=== PATIENT | female | born 1995 | race Caucasian/White ===

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

== ENCOUNTER 2017-03-16 03:43 | Emergency (ER) | payer MEDICAID ==
[~2017-03-16] VITALS: Ht 160 cm; Wt 81.6 kg
[~2017-03-16 03:43] MED LIST changes: +TRAMADOL HCL50 MG ORAL
[2017-03-16] MEDS ORDERED: Acetaminophen 500mg (ES) tab ORAL ONE (04:00)
[2017-03-16] MEDS ORDERED: IBUPROFEN600 MG ORAL (04:01)
[2017-03-16] MEDS ORDERED: TAMIFLU75 MG ORAL (04:02)
--- NOTE | 2017-03-16 04:02 | Emergency Room Report ---
History of Present Illness General Chief Complaint: Headache Source: Patient Present Illness HPI Is a 22-year-old female with no past history. She presents with chief complaint of fever and headache. Also with diffuse body pain. Onset last night. No nausea no vomiting. No cough or congestion. No dysuria frequency. No sick contact. Allergies: Coded Allergies: No Known Allergies (Unverified , 07/09/15) Patient History Past Medical History: none, see triage record, old chart reviewed Past Surgical History: none Pertinent Family History: none Social History: Denies: smoking Last Menstrual Period: Jan Now: No Immunizations: UTD, other Reviewed Nursing Documentation: PMH: Agreed, PSxH: Agreed Nursing Documentation-PMH Past Medical History: No Stated History Hx Cardiac Problems: No Hx Cancer: No Hx Gastrointestinal Problems: No Hx Neurological Problems: No Review of Systems Constitutional: Reports: fever Eye: Denies: eye pain, blurred vision ENT: Denies: ear pain, nose congestion, throat swelling Respiratory: Denies: cough, shortness of breath Cardiovascular: Denies: chest pain, palpitations Gastrointestinal: Denies: abdominal pain, diarrhea, nausea, vomiting Musculoskeletal: Denies: back pain, joint pain Skin: Denies: rash Neurological: Reports: headache Endocrine: Denies: increased thirst, increased urine Hematologic/Lymphatic: Denies: easy bruising All Other Systems: negative except mentioned in HPI Physical Exam Vital Signs Date Time Temp Pulse Resp B/P (MAP) Pulse Ox O2 Delivery O2 Flow Rate FiO2 03/16/17 03:47 98.6 157 18 120/55 97 Room Air vitals with tachycardia Sp02 EP Interpretation: reviewed, normal General Appearance: well appearing, no apparent distress, alert Head: normocephalic, atraumatic Eyes: bilateral eye PERRL, bilateral eye EOMI ENT: hearing grossly normal, normal pharynx Neck: full range of motion, supple, no meningismus Respiratory: chest non-tender, lungs clear, normal breath sounds Cardiovascular #1: regular rate, rhythm, no murmur Gastrointestinal: normal bowel sounds, non tender, no mass, no organomegaly, no bruit, non-distended Musculoskeletal: back normal, gait/station normal, normal range of motion Neurologic: alert, oriented x3 Psychiatric: mood/affect normal Skin: warm/dry Medical Decision Making Diagnostic Impression: Primary Impression: Influenza ER Course Patient with symptom of influenza. She is very warm to the touch. No evidence of meningitis, sepsis pneumonia or UTI. Last Vital Signs Date Time Temp Pulse Resp B/P (MAP) Pulse Ox O2 Delivery O2 Flow Rate FiO2 03/16/17 03:47 98.6 157 18 120/55 97 Room Air Status: improved Disposition: HOME, SELF-CARE Condition: Stable Scripts Oseltamivir Phosphate (Tamiflu) 75 Mg Capsule 75 MG ORAL TWICE A DAY, #10 CAP Prov: KENNA COTTON M.D. 03/16/17 Ibuprofen* (MOTRIN*) 600 Mg Tablet 600 MG ORAL THREE TIMES A DAY, #30 TAB 0 Refills Prov: KENNA COTTON M.D. 03/16/17 Additional Instructions: Followup with your Dr. in 3-5 days. Increase fluid. Return if symptom worsen. KENNA COTTON M.D. Mar 16, 2017 04:02
[2017-03-16 04:10] VITALS: BP 120/55
[2017-03-16 04:37] VITALS: BP 120/55
== END 2017-03-16 04:45 | disposition home or self-care (01) ==
LOC: EMR 04:45
DX: J11.1 Influenza due to unidentified influenza virus with other respiratory manifestations (principal)
CPT/HCPCS: 99283

== ENCOUNTER 2017-07-28 13:59 | Emergency (ER) | payer MEDICAID ==
[~2017-07-28] VITALS: Ht 160 cm; Wt 84.4 kg
[~2017-07-28 13:59] MED LIST changes: +TAMIFLU75 MG ORAL
[2017-07-28 15:39] LABS: APPEARANCE,URINE CLEAR; BILIRUBIN, URINE NEGATIVE (NEGATIVE); GLUCOSE, URINE (UA) NEGATIVE (NEGATIVE); KETONES,URINE NEGATIVE (NEGATIVE); LEUKOCYTE ESTERASE ,URINE 1+ (NEGATIVE); NITRITE,URINE POSITIVE (NEGATIVE); PH,URINE 6 (4.5-8.0); PROTEIN,URINE NEGATIVE (NEGATIVE); UROBILINOGEN,URINE NORMAL MG/DL (0.0-1.0)
[2017-07-28 15:39] LABS: BASOPHILS % (AUTO) 0.6 % (0.0-2.0); EOSINOPHILS % (AUTO) 0.7 % (0.0-3.0); HEMATOCRIT 39.5 % (37.0-47.0); HEMOGLOBIN 13.3 G/DL (12.0-16.0); LYMPHOCYTES % (AUTO) 24.8 % (20.0-45.0); MEAN CORPUSCULAR VOLUME 86 FL (80-99); MONOCYTES % (AUTO) 8.3 % (1.0-10.0); NEUTROPHILS % (AUTO) 65.6 % (45.0-75.0); PLATELET COUNT 229 K/UL (150-450); RED BLOOD COUNT 4.59 M/UL (4.20-5.40); RED CELL DISTRIBUTION WIDTH 12.8 % (11.6-14.8); WHITE BLOOD COUNT 9.4 K/UL (4.8-10.8)
--- NOTE | 2017-07-28 15:40 | Emergency Room Report ---
History of Present Illness General Chief Complaint: Complications Source: Patient Present Illness HPI 22-year-old female presents ED for evaluation. States that she's approximate 6 weeks by LMP. States for the last few days she's been having lower cramping and spotting. 4 out of 10. Nonradiating. Denies vaginal discharge. Denies fevers or chills. Denies nausea or vomiting. No other aggravating or relieving factors. Denies any other associated symptoms Allergies: Coded Allergies: No Known Allergies (Unverified , 07/09/15) Patient History Past Medical History: none Past Surgical History: none Pertinent Family History: none Social History: Denies: smoking, alcohol use, drug use Last Menstrual Period: july 16 Now: Yes : 3 Para: 0 Immunizations: UTD Reviewed Nursing Documentation: PMH: Agreed; PSxH: Agreed Nursing Documentation-PMH Past Medical History: No Stated History Hx Cardiac Problems: No Hx Cancer: No Hx Gastrointestinal Problems: No Hx Neurological Problems: No Review of Systems All Other Systems: negative except mentioned in HPI Physical Exam Vital Signs Date Time Temp Pulse Resp B/P (MAP) Pulse Ox O2 Delivery O2 Flow Rate FiO2 07/28/17 14:07 98.2 74 18 106/59 98 Room Air 98.2 Sp02 EP Interpretation: reviewed, normal General Appearance: no apparent distress, alert, GCS 15, non-toxic Head: normocephalic, atraumatic Eyes: bilateral eye normal inspection, bilateral eye PERRL ENT: hearing grossly normal, normal pharynx, no angioedema, normal voice Neck: full range of motion, supple/symm/no masses Respiratory: chest non-tender, lungs clear, normal breath sounds, speaking full sentences Cardiovascular #1: regular rate, rhythm, no edema Cardiovascular #2: 2+ carotid (R), 2+ carotid (L), 2+ radial (R), 2+ radial (L) , 2+ dorsalis pedis (R), 2+ dorsalis pedis (L) Gastrointestinal: normal bowel sounds, non tender, soft, non-distended, no guarding, no rebound Rectal: deferred Genitourinary: normal inspection, no CVA tenderness Musculoskeletal: back normal, gait/station normal, normal range of motion, non- tender Neurologic: alert, oriented x3, responsive, motor strength/tone normal, sensory intact, speech normal Psychiatric: judgement/insight normal, memory normal, mood/affect normal, no suicidal/homicidal ideation Reflexes: 3+ bicep (R), 3+ bicep (L), 3+ tricep (R), 3+ tricep (L), 3+ knee (R) , 3+ knee (L) Skin: normal color, no rash, warm/dry, well hydrated Lymphatic: no adenopathy Medical Decision Making Diagnostic Impression: Primary Impression: Threatened Additional Impression: UTI (urinary tract infection) Qualified Codes: N39.0 - Urinary tract infection, site not specified ER Course Hospital Course 22-year-old female presents to ED complaining of lower abdominal pain with spotting + Differential diagnoses include: gastrits, gastroenterits, ectopic , ovarian torsion/cyst, UTI Clinical course Patient placed on stretcher in ED. After initial history and physical I ordered labs and US Labs-no leukocytosis, electrolytes okay, BHCG +, UA + bacteria OB ultrasound-IUP detected with heart rate Discussed findings with patient. heart rate on the low side. Patient had 2 prior miscarriages. I explained to patient that she needs to follow-up with [employer]/GYN specialist. Diagnosis - threateend , UTI Stable and discharged to home with Rx macrobid. Followup with PMD/SERVER. Return to ED if symptoms recur or worsen Labs Test 07/28/17 14:11 07/28/17 15:00 Urine Color Yellow Urine Appearance Clear Urine pH 6 (4.5-8.0) Urine Specific [place] 1.020 (1.005-1.035) Urine Protein Negative (NEGATIVE) Urine Glucose (UA) Negative (NEGATIVE) Urine Ketones Negative (NEGATIVE) Urine Occult Blood 2+ (NEGATIVE) Urine Nitrite Positive (NEGATIVE) Urine Bilirubin Negative (NEGATIVE) Urine Urobilinogen Normal MG/DL (0.0-1.0) Urine Leukocyte Esterase 1+ (NEGATIVE) Urine RBC 2-4 /HPF (0 - 2) Urine WBC 0-2 /HPF (0 - 2) Urine Squamous Epithelial Cells Few /LPF (NONE/OCC) Urine Amorphous Sediment Few /LPF (NONE) Urine Bacteria Few /HPF (NONE) Urine HCG, Qualitative Positive (NEGATIVE) White Blood Count 9.4 K/UL (4.8-10.8) Red Blood Count 4.59 M/UL (4.20-5.40) Hemoglobin 13.3 G/DL (12.0-16.0) Hematocrit 39.5 % (37.0-47.0) Mean Corpuscular Volume 86 FL (80-99) Mean Corpuscular Hemoglobin 29.0 PG (27.0-31.0) Mean Corpuscular Hemoglobin Concent 33.7 G/DL (32.0-36.0) Red Cell Distribution Width 12.8 % (11.6-14.8) Platelet Count 229 K/UL (150-450) Mean Platelet Volume 10.2 FL (6.5-10.1) Neutrophils (%) (Auto) 65.6 % (45.0-75.0) Lymphocytes (%) (Auto) 24.8 % (20.0-45.0) Monocytes (%) (Auto) 8.3 % (1.0-10.0) Eosinophils (%) (Auto) 0.7 % (0.0-3.0) Basophils (%) (Auto) 0.6 % (0.0-2.0) Sodium Level 136 MMOL/L (136-145) Potassium Level 3.8 MMOL/L (3.5-5.1) Chloride Level 103 MMOL/L (98-107) Carbon Dioxide Level 24 MMOL/L (21-32) Anion Gap 9 mmol/L (5-15) Blood Urea Nitrogen 12 mg/dL (7-18) Creatinine 0.5 MG/DL (0.55-1.30) Estimat Glomerular Filtration Rate > 60 mL/min (>60) Glucose Level 91 MG/DL (74-106) Calcium Level 9.2 MG/DL (8.5-10.1) Total Bilirubin 0.4 MG/DL (0.2-1.0) Aspartate Amino Transf (AST/SGOT) 19 U/L (15-37) Alanine Aminotransferase (ALT/SGPT) 40 U/L (12-78) Alkaline Phosphatase 69 U/L (46-116) Total Protein 7.4 G/DL (6.4-8.2) Albumin 3.7 G/DL (3.4-5.0) Globulin 3.7 g/dL Albumin/Globulin Ratio 1.0 (1.0-2.7) Human Chorionic Gonadotropin, Quant 24256 mIU/mL (1-6) CT/MRI/US Diagnostic Results CT/MRI/US Diagnostic Results : Imaging Test Ordered: OB US Impression IUP approximately 6 weeks. +FHR noted Last Vital Signs Date Time Temp Pulse Resp B/P (MAP) Pulse Ox O2 Delivery O2 Flow Rate FiO2 07/28/17 14:07 98.2 74 18 106/59 98 Room Air 98.2 Status: improved Disposition: HOME, SELF-CARE Condition: Stable Scripts Nitrofurantoin Monohyd/M-Cryst* (MACROBID 100 MG*) 100 Mg Capsule 100 MG ORAL EVERY 12 HOURS for 7 Days, CAP Prov: Dawson Camacho MD 07/28/17 Referrals: NON PHYSICIAN (PCP) Dawson Camacho MD July 28, 2017 15:40
[2017-07-28 15:41] LABS: COLOR,URINE YELLOW
[2017-07-28 15:54] LABS: ANION GAP 9 mmol/L (5-15); BLOOD UREA NITROGEN 12 mg/dL (7-18); CALCIUM 9.2 MG/DL (8.5-10.1); CARBON DIOXIDE 24 MMOL/L (21-32); CHLORIDE 103 MMOL/L (98-107); CREATININE 0.5 MG/DL (0.55-1.30); POTASSIUM 3.8 MMOL/L (3.5-5.1); SODIUM 136 MMOL/L (136-145)
[2017-07-28 16:06] LABS: ALBUMIN 3.7 G/DL (3.4-5.0); ALKALINE PHOSPHATASE 69 U/L (46-116); ASPARTATE AMINO TRANSFERASE 19 U/L (15-37); BILIRUBIN,TOTAL 0.4 MG/DL (0.2-1.0)
[2017-07-28 16:17] LABS: ALANINE AMINOTRANSFERASE 40 U/L (12-78)
[2017-07-28 16:19] VITALS: BP 104/57
[2017-07-28] MEDS ORDERED: NITROFURANTOIN100 M2 ORAL (16:38)
[2017-07-28 16:42] VITALS: BP 104/57
--- NOTE | 2017-07-28 16:55 | Diagnostic Imaging Report ---
Indication: Vaginal bleeding Technique: Grayscale and duplex Doppler imaging of the pelvis performed utilizing a transabdominal scan and endovaginal scan. Comparison: None Findings: Single living intrauterine demonstrated with a yolk sac and pole. Gestational age based on crown-rump length is 6 weeks +/- 4 days. heart tones demonstrated. There is a 1.5 cm cyst in the right ovary. Both ovaries demonstrate dopplerable blood flow. IMPRESSION: Single living IUP 6 weeks gestational age. 1.5 cm right corpus luteum cyst
== END 2017-07-28 16:42 | disposition home or self-care (01) ==
LOC: EMR 14:41
DX: O20.0 Threatened abortion (principal); Z3A.01 Less than 8 weeks gestation of pregnancy; O23.41 Unspecified infection of urinary tract in pregnancy, first trimester; O34.81 Maternal care for other abnormalities of pelvic organs, first trimester; N83.11 Corpus luteum cyst of right ovary
CPT/HCPCS: 36415; 76801; 76830; 80053; 81003; 81025; 84702; 85025; 99284

== ENCOUNTER 2017-08-17 20:18 | Emergency (ER) | payer MEDICAID ==
[~2017-08-17] VITALS: Ht 160 cm; Wt 84.4 kg
[2017-08-17] MEDS ORDERED: VITAFOL-OB+DHA1 EACH PO (20:29)
[2017-08-17 20:45] VITALS: BP 118/66
[2017-08-17] MEDS ORDERED: EPINEPHrine 1mg/1ml Amp IM ONE (20:45)
--- NOTE | 2017-08-17 20:50 | Emergency Room Report ---
History of Present Illness General Chief Complaint: Skin Rash/Abscess Source: Patient Present Illness HPI The patient presents with 3 days of a skin rash with itching. It started on her back. Started after she had eaten shrimp. She's never reacted to shrimp before. It's persisted and spread throughout her body with itching of her hands. She denies any fevers, chills, swelling of throat or shortness of breath. She is unable to sleep because of the itching. She tried Benadryl cream but hasn't helped. The patient is 9 weeks and her last period was June 15. She's had intermittent bleeding. She bled 2 days ago for a short period of time without any clots and only used one pad. The bleeding has stopped. 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 She denies any lower abdominal pain or dysuria. She is eating well without vomiting or diarrhea. She denies new soaps clothes perfumes. Intermittent episodes of back pain in past, stable now. Allergies: Coded Allergies: No Known Allergies (Unverified , 07/09/15) Patient History Past Medical History: see triage record Social History: Denies: smoking, alcohol use Social History Narrative with significant other Last Menstrual Period: 06/15/18 Now: Yes - 9 weeks : 3 Para: 0 Reviewed Nursing Documentation: PMH: Agreed; PSxH: Agreed Nursing Documentation-PM Past Medical History: No Stated History Hx Cardiac Problems: No Hx Cancer: No Hx Gastrointestinal Problems: No Hx Neurological Problems: No Review of Systems All Other Systems: negative except mentioned in HPI Physical Exam Vital Signs Date Time Temp Pulse Resp B/P (MAP) Pulse Ox O2 Delivery O2 Flow Rate FiO2 08/17/17 20:23 97.9 73 16 118/66 96 Room Air 97.9 Sp02 EP Interpretation: reviewed, normal General Appearance: well appearing, no apparent distress, GCS 15, other - Scratching her palms Head: normocephalic Eyes: bilateral eye normal inspection, bilateral eye PERRL ENT: moist mucus membranes Neck: supple Respiratory: lungs clear, normal breath sounds Cardiovascular #1: regular rate, rhythm Cardiovascular #2: 2+ radial (R) Gastrointestinal: normal inspection, normal bowel sounds, non tender, no mass, non-distended Genitourinary: no CVA tenderness Musculoskeletal: back normal, gait/station normal, normal range of motion Neurologic: alert, oriented x3, grossly normal Psychiatric: mood/affect normal Skin: warm/dry, other - [id number] reacti torso and extremities. Medical Decision Making Diagnostic Impression: Primary Impression: Hives Additional Impressions: 9 weeks gestation of History of vaginal bleeding History of incompetent cervix, currently UTI (urinary tract infection) Qualified Codes: N30.00 - Acute cystitis without hematuria ER Course Patient presents with skin itching and [id number] reaction. The [place] includes allergic reaction, hives, viral syndrome amongst others. There is no evidence of anaphylaxis or serious upper airway compromise at this time. The patient is unable to sleep however in epinephrine, prednisone and Benadryl are indicated. She's also 9 weeks' . She had a small amount of vaginal bleeding a few days ago. This is resolved. Urinalysis will be checked. She is been followed by an [employer] and had an ultrasound done. Improved slightly after epi. Still c/o itching. Refuses more epi. Discussed onset of prednisone. Blood bank review confirms O+ blood. UA with pyuria. Macrobid started. Patient stable for outpatient observation and treatment. Laboratory Tests Test 08/17/17 20:43 Urine Color [place] Urine Appearance Slightly cloudy Urine pH 6.5 (4.5-8.0) Urine Specific [place] 1.020 (1.005-1.035) Urine Protein 1+ (NEGATIVE) H Urine Glucose (UA) Negative (NEGATIVE) Urine Ketones Negative (NEGATIVE) Urine Occult Blood 1+ (NEGATIVE) H Urine Nitrite Negative (NEGATIVE) Urine Bilirubin Negative (NEGATIVE) Urine Ictotest Negative Urine Urobilinogen Normal MG/DL (0.0-1.0) Urine Leukocyte Esterase 1+ (NEGATIVE) H Urine RBC 0-2 /HPF (0 - 2) Urine WBC 5-10 /HPF (0 - 2) H Urine Squamous Epithelial Cells Moderate /LPF (NONE/OCC) H Urine Amorphous Sediment Few /LPF (NONE) H Urine Bacteria Moderate /HPF (NONE) H Rhythm Strip Diag. Results EP Interpretation: yes Rhythm: NSR, no PVC's, no ectopy Last Vital Signs Date Time Temp Pulse Resp B/P (MAP) Pulse Ox O2 Delivery O2 Flow Rate FiO2 08/17/17 22:00 98.0 85 16 122/97 97 Room Air 98.0 Status: improved Disposition: HOME, SELF-CARE Condition: Improved Scripts Nitrofurantoin Monohyd/M-Cryst* (MACROBID 100 MG*) 100 Mg Capsule 100 MG ORAL EVERY 12 HOURS, #14 CAP Prov: Israel Dukes M.D. 08/17/17 Diphenhydramine Hcl* (BENADRYL*) 25 Mg Capsule 25 MG ORAL Q6H PRN for Itching, #20 CAP Prov: Israel Dukes M.D. 08/17/17 Prednisone* (PREDNISONE*) 10 Mg Tablet 10 MG ORAL DAILY, #11 TAB 0 Refills 4 po QD X 1, 3 po QD X 1, 2 po QD X 1, 1 po QD X 2 Prov: Israel Dukes M.D. 08/17/17 Referrals: [facility],REFERRING (PCP) Israel Dukes M.D. August 17, 2017 20:50
[2017-08-17 21:20] LABS: APPEARANCE,URINE SLIGHTLY CLOUDY; BILIRUBIN, URINE NEGATIVE (NEGATIVE); COLOR,URINE AMBER; GLUCOSE, URINE (UA) NEGATIVE (NEGATIVE); KETONES,URINE NEGATIVE (NEGATIVE); LEUKOCYTE ESTERASE ,URINE 1+ (NEGATIVE); NITRITE,URINE NEGATIVE (NEGATIVE); PH,URINE 6.5 (4.5-8.0); PROTEIN,URINE 1+ (NEGATIVE); UROBILINOGEN,URINE NORMAL MG/DL (0.0-1.0)
[2017-08-17 21:45] VITALS: BP 122/97
[2017-08-17] MEDS ORDERED: PREDNISONE10 MG ORAL (21:54)
[2017-08-17] MEDS ORDERED: BENADRYL25 MG ORAL (21:54)
[2017-08-17] MEDS ORDERED: NITROFURANTOIN100 M2 ORAL (21:54)
[2017-08-17 22:00] VITALS: BP 122/97
== END 2017-08-17 22:00 | disposition home or self-care (01) ==
LOC: EMR 20:40
DX: O26.891 Other specified pregnancy related conditions, first trimester (principal); Z3A.09 9 weeks gestation of pregnancy; R21 Rash and other nonspecific skin eruption; O23.41 Unspecified infection of urinary tract in pregnancy, first trimester
CPT/HCPCS: 81003; 87086; 96372; 99284; J0171; J7512

== ENCOUNTER 2019-02-25 10:56 | Inpatient (IN) | payer MEDICAID ==
[~2019-02-25] VITALS: Ht 160 cm; Wt 93.4 kg
[~2019-02-25 10:56] MED LIST changes: +BENADRYL25 MG ORAL; +PREDNISONE10 MG ORAL; +VITAFOL-OB+DHA1 EACH PO
[2019-02-25 11:57] LABS: HEMATOCRIT 39.7 % (37.0-47.0); MEAN CORPUSCULAR VOLUME 86 FL (80-99); PLATELET COUNT 216 K/UL (150-450); RED CELL DISTRIBUTION WIDTH 11.8 % (11.6-14.8); WHITE BLOOD COUNT 12.8 K/UL (4.8-10.8)
[2019-02-25 12:11] LABS: APPEARANCE,URINE CLEAR; BILIRUBIN, URINE NEGATIVE (NEGATIVE); GLUCOSE, URINE (UA) NEGATIVE (NEGATIVE); KETONES,URINE 4+ (NEGATIVE); LEUKOCYTE ESTERASE ,URINE 1+ (NEGATIVE); NITRITE,URINE NEGATIVE (NEGATIVE); PH,URINE 6.5 (4.5-8.0); PROTEIN,URINE 2+ (NEGATIVE); UROBILINOGEN,URINE NORMAL MG/DL (0.0-1.0)
[2019-02-25 12:14] LABS: ANION GAP 10 mmol/L (5-15); BLOOD UREA NITROGEN 10 mg/dL (7-18); CALCIUM 8.6 MG/DL (8.5-10.1); CARBON DIOXIDE 25 MMOL/L (21-32); CHLORIDE 103 MMOL/L (98-107); CREATININE 0.7 MG/DL (0.55-1.30); POTASSIUM 3.7 MMOL/L (3.5-5.1); SODIUM 138 MMOL/L (136-145)
[2019-02-25 12:15] LABS: INR 0.9 (0.9-1.1)
[2019-02-25 12:18] LABS: COLOR,URINE YELLOW
[2019-02-25 12:19] LABS: ALANINE AMINOTRANSFERASE 70 U/L (12-78); ALBUMIN 3.2 G/DL (3.4-5.0); ALBUMIN/GLOBULIN RATIO 0.8 (1.0-2.7); ALKALINE PHOSPHATASE 73 U/L (46-116); ASPARTATE AMINO TRANSFERASE 46 U/L (15-37); BILIRUBIN,TOTAL 0.2 MG/DL (0.2-1.0)
--- NOTE | 2019-02-25 13:50 | Emergency Room Report ---
History of Present Illness General Chief Complaint: Syncope Source: Patient Present Illness HPI Syncope at home. Hit forehead. Has had RLQ and R flank pain 10/31. Bladder pain being treated for UTI. Some chills, no documented fever. Vomiting, no blood. Able to keep down some fluids. No medicines taken for the pain. Pain radiates to R flank. No vaginal bleeding or discharge. Tx for UTI and feels like pain in flank and abdomen is related. Still feels dizzy. Denies headache aside from where she hit her forehead. Sates 14 weeks . Not know blood type. No sore throat, chest pain, palpitations, diarrhea, cough, shortness of breath, joint pain, rashes, depression, anxiety, headache. Allergies: Coded Allergies: No Known Allergies (Unverified , 07/09/15) Patient History Past Medical History: see triage record Social History: Denies: smoking, alcohol use Social History Narrative One child at home 3 y.o. Now: Yes - 14 weeks : 4 Reviewed Nursing Documentation: PMH: Agreed; PSxH: Agreed Nursing Documentation-[facility] Past Medical History: No Stated History Hx Cardiac Problems: No Hx Cancer: No Hx Gastrointestinal Problems: No Hx Neurological Problems: No Review of Systems All Other Systems: negative except mentioned in HPI Physical Exam Vital Signs Date Time Temp Pulse Resp B/P (MAP) Pulse Ox O2 Delivery O2 Flow Rate FiO2 02/25/19 11:06 98.1 85 19 116/71 (86) 98 Room Air Sp02 EP Interpretation: reviewed, normal General Appearance: no apparent distress, GCS 15, non-toxic, other - pale Head: normocephalic, other - see skin Eyes: bilateral eye normal inspection, bilateral eye PERRL, bilateral eye EOMI ENT: moist mucus membranes Neck: full range of motion, supple, no bony tend Respiratory: chest non-tender, lungs clear, normal breath sounds Cardiovascular #1: regular rate, rhythm Cardiovascular #2: 2+ radial (R) Gastrointestinal: normal inspection, normal bowel sounds, no mass, non- distended, no rebound, guarding - RLQ, tenderness - suprapubid and RLQ - R flank Genitourinary: CVA tenderness (R), deferred - for ultrasound Musculoskeletal: back normal, normal range of motion, gait/station normal - with weakness and pallor when standing Neurologic: alert, oriented x3, grossly normal Psychiatric: anxious - as feels dizzy Skin: abrasion - hematoma (small) R frontal/forehead, pallor Medical Decision Making Diagnostic Impression: Primary Impression: Syncope Qualified Codes: R55 - Syncope and collapse Additional Impressions: 13 weeks gestation of Pelvic pain Persistent vomiting Partially treated pyelonephritis Leukocytosis Qualified Codes: D72.828 - Other elevated white blood cell count Head injury Qualified Codes: S09.90XA - Unspecified injury of head, initial encounter ER Course Patient presents with syncope and head trauma stating 14 months with abdominal pain being treated for UTI. Differential vasovagal, ectopic, UTI, ovarian cyst, appendicitis, volume depletion, hyperemesis, viral syndrome amongst others. Evaluation with EKG, abdominal ultrasound and labs. Treatment with IV hydration and cardiac observation. Non-focal neuro and no WOOD, CT not indicated of head. Pallor improved when supine. EKG without injury. Ultrasound IUP. Labs with elevated WBC. Quant appropriate. O+ blood. Urine with ketones and blood, few WBC. Patient continues to vomit and have 7/10 pain in her abdomen. Her abdomen is nonsurgical at this time. She will be treated with Reglan, Benadryl and morphine.13:49. Patient will be admitted for observation due to syncope, abdominal pain and persistent vomiting with possible partially treated pyelonephritis Dr. Morales. (Consider serial exams and CBC with consideration of appendicitis - less likely due to physical exam.) Rocephin given IV. Discussed with Dr. Edwards. Patient eating in ED. Laboratory Tests Test 02/25/19 11:29 White Blood Count 12.8 K/UL (4.8-10.8) H Red Blood Count 4.60 M/UL (4.20-5.40) Hemoglobin 13.0 G/DL (12.0-16.0) Hematocrit 39.7 % (37.0-47.0) Mean Corpuscular Volume 86 FL (80-99) Mean Corpuscular Hemoglobin 28.3 PG (27.0-31.0) Mean Corpuscular Hemoglobin Concent 32.8 G/DL (32.0-36.0) Red Cell Distribution Width 11.8 % (11.6-14.8) Platelet Count 216 K/UL (150-450) Mean Platelet Volume 10.9 FL (6.5-10.1) H Neutrophils (%) (Auto) % (45.0-75.0) Lymphocytes (%) (Auto) % (20.0-45.0) Monocytes (%) (Auto) % (1.0-10.0) Eosinophils (%) (Auto) % (0.0-3.0) Basophils (%) (Auto) % (0.0-2.0) Differential Total Cells Counted 100 Neutrophils % (Manual) 81 % (45-75) H Lymphocytes % (Manual) 11 % (20-45) L Monocytes % (Manual) 7 % (1-10) Eosinophils % (Manual) 1 % (0-3) Basophils % (Manual) 0 % (0-2) Band Neutrophils 0 % (0-8) Platelet Estimate Adequate Platelet Morphology Normal Red Blood Cell Morphology Normal Prothrombin Time 9.9 SEC (9.30-11.50) Prothrombin Time INR 0.9 (0.9-1.1) PTT 26 SEC (23-33) Urine Color Yellow Urine Appearance Clear Urine pH 6.5 (4.5-8.0) Urine Specific [place] 1.020 (1.005-1.035) Urine Protein 2+ (NEGATIVE) H Urine Glucose (UA) Negative (NEGATIVE) Urine Ketones 4+ (NEGATIVE) H Urine Blood 5+ (NEGATIVE) H Urine Nitrite Negative (NEGATIVE) Urine Bilirubin Negative (NEGATIVE) Urine Urobilinogen Normal MG/DL (0.0-1.0) Urine Leukocyte Esterase 1+ (NEGATIVE) H Urine RBC Tntc /HPF (0 - 2) H Urine WBC 2-4 /HPF (0 - 2) Urine Squamous Epithelial Cells Many /LPF (NONE/OCC) H Urine Bacteria Few /HPF (NONE) Sodium Level 138 MMOL/L (136-145) Potassium Level 3.7 MMOL/L (3.5-5.1) Chloride Level 103 MMOL/L (98-107) Carbon Dioxide Level 25 MMOL/L (21-32) Anion Gap 10 mmol/L (5-15) Blood Urea Nitrogen 10 mg/dL (7-18) Creatinine 0.7 MG/DL (0.55-1.30) Estimate Glomerular Filtration Rate > 60 mL/min (>60) Glucose Level 136 MG/DL (74-106) H Calcium Level 8.6 MG/DL (8.5-10.1) Total Bilirubin 0.2 MG/DL (0.2-1.0) Aspartate Amino Transferase (AST) 46 U/L (15-37) H Alanine Aminotransferase (ALT) 70 U/L (12-78) Alkaline Phosphatase 73 U/L (46-116) Total Protein 7.4 G/DL (6.4-8.2) Albumin 3.2 G/DL (3.4-5.0) L Globulin 4.2 g/dL Albumin/Globulin Ratio 0.8 (1.0-2.7) L Lipase 73 U/L (73-393) Human Chorionic Gonadotropin, Quant 03499 mIU/mL (1-6) H EKG Diagnostic Results Rate: normal Rhythm: NSR ST Segments: no acute changes Rhythm Strip Diag. Results EP Interpretation: yes Rhythm: NSR, no PVC's, no ectopy CT/MRI/US Diagnostic Results CT/MRI/US Diagnostic Results : Imaging Test Ordered: pelvic u/s Impression Impression: Are 13 week 4 day, by average of ultrasound measurements, single live intrauterine . No unusual features Last Vital Signs Date Time Temp Pulse Resp B/P (MAP) Pulse Ox O2 Delivery O2 Flow Rate FiO2 02/25/19 20:00 101 02/25/19 20:00 98.8 116/60 (78) 02/25/19 17:38 20 98 Room Air Status: improved Disposition: PLACE IN OBSERVATION Condition: Serious Referrals: NON PHYSICIAN (PCP) Israel Dukes MD Feb 25, 2019 13:50
[2019-02-25 13:59] VITALS: BP 130/69
[2019-02-25] MEDS ORDERED: DiphenhydrAMINE 50mg/ml Inj IVP ONE (14:00)
[2019-02-25] MEDS ORDERED: Metoclopramide 10mg/2ml Inj IVP ONE (14:00)
[2019-02-25] MEDS ORDERED: Morphine Sulfate 2mg/ml Inj(IV/IM USE ONLY) IVP ONE (14:00)
--- NOTE | 2019-02-25 14:07 | Diagnostic Imaging Report ---
Indication: Abdominal pain, pelvic pain, nausea, vomiting, positive test Technique: Transabdominal images of the uterus and fetus Comparison: 07/28/2017 Findings: There is a single live intrauterine . This demonstrates breech presentation. It demonstrates positive heart activity, heart rate 136 bpm. There is a posterior placenta which clears the internal cervical os. The cervix is closed, endocervical canal measuring 3.9 cm in length. Normal amniotic fluid volume, amniotic fluid index 13.8 cm. measurements as follows: [place]-rump length 7.2 cm, 13 weeks 3 days; biparietal diameter 2.2 cm, 30 weeks 5 days; head circumference 8.1 cm, 30 weeks 3 days; abdominal circumference 7.7 cm, 14 weeks one day; femur length 1.3 cm, 30 weeks 5 days. Estimated gestational age by average of ultrasound measurements is 13 weeks 4 days. Estimated date of delivery 08/29/2019 Detailed assessment of anatomy not performed, due to early stage of , emergent nature of the exam. No gross anomalies demonstrated. Right ovary measures 2.8 cm in length. Left ovary cannot be demonstrated Impression: Are 2 week 4 day, by average of ultrasound measurements, single live intrauterine . No unusual features
[2019-02-25] MEDS ORDERED: cefTRIAXone 1 GM in NS 55 ML IVPB ONE (16:30)
[2019-02-25 17:38] VITALS: BP 139/69
[2019-02-25] MEDS ORDERED: ASPIR 8181 MG ORAL (19:54)
[2019-02-25] MEDS ORDERED: PRENATAL VITAM1 EAC3 PO (19:56)
[2019-02-25 20:00] VITALS: BP 116/60
[2019-02-25] MEDS: D5 1/2NS w/KCl 20mEq 1,000 ML IV SCH (21:30)
[2019-02-26] VITALS: BP 123/67
[2019-02-26 04:00] VITALS: BP 128/68
[2019-02-26] MEDS: D5 1/2NS w/KCl 20mEq 1,000 ML IV SCH ×2 (05:41→18:00)
[2019-02-26 08:00] VITALS: BP 116/72
[2019-02-26] MEDS ORDERED: cefTRIAXone 1 GM in D5W 55 ML IVPB SCH (09:00)
[2019-02-26] MEDS ORDERED: Aspirin Baby 81mg ORAL SCH (09:00)
--- NOTE | 2019-02-26 09:28 | Consultation ---
Consult Note Consult Note GYNECOLOGY CONSULT NOTE HPI: Patient is a at 14w1d by LMP 11/19/18 (DIETER 08/26/19) who was admitted with multiple episodes of syncope yesterday as well as concern for pyelonephritis. First episode occurred first thing in the AM yesterday. She is currently sitting up in bed, comfortable, without any report of additional syncopal episodes. She denies fever or chills and feels well. She denies any pain. She thinks her syncope was secondary to a lack of eating since it occurred first thing in the morning. She denies any nausea or vomiting and is tolerating PO. She is hungry and was provided crackers and will be given breakfast. No other issues at this time. No cramping or bleeding. Her FIRE ENGINEER is at [facility] in [facility]. She reports needing cerclage with her last , given her history of two 2nd trimester losses. PMH: Obesity PSH: Cerclage MEDS: PNV, ASA 81, recently treated for UTI with Amoxicillin and ?Augmentin ALLERGIES: NKDA OB: - x 1, SAB x 2 (@14w and @ 19w) GEOTECHNICAL DEPARTMENT MANAGER: LMP 11/19/18. Last Pap with her OB at [facility], no hx STI, cysts or fibroids SOC: Lives with her boyfriend FAM: Both parents with T2DM VITALS: Tmax 98.8, P 94, BP 128/68, RR 18, O2 99% RA EXAM: Gen: NAD HEENT: OP Clear, MMM CV: No tachycardia Pulm: No increased work of breathing Abd: Soft, obese, NTND Back: No CVAT Pelvic: Deferred Ext: No calf TTP LABS: Laboratory Tests Test 02/25/19 11:29 White Blood Count 12.8 K/UL (4.8-10.8) H Red Blood Count 4.60 M/UL (4.20-5.40) Hemoglobin 13.0 G/DL (12.0-16.0) Hematocrit 39.7 % (37.0-47.0) Mean Corpuscular Volume 86 FL (80-99) Mean Corpuscular Hemoglobin 28.3 PG (27.0-31.0) Mean Corpuscular Hemoglobin Concent 32.8 G/DL (32.0-36.0) Red Cell Distribution Width 11.8 % (11.6-14.8) Platelet Count 216 K/UL (150-450) Mean Platelet Volume 10.9 FL (6.5-10.1) H Neutrophils (%) (Auto) % (45.0-75.0) Lymphocytes (%) (Auto) % (20.0-45.0) Monocytes (%) (Auto) % (1.0-10.0) Eosinophils (%) (Auto) % (0.0-3.0) Basophils (%) (Auto) % (0.0-2.0) Differential Total Cells Counted 100 Neutrophils % (Manual) 81 % (45-75) H Lymphocytes % (Manual) 11 % (20-45) L Monocytes % (Manual) 7 % (1-10) Eosinophils % (Manual) 1 % (0-3) Basophils % (Manual) 0 % (0-2) Band Neutrophils 0 % (0-8) Platelet Estimate Adequate Platelet Morphology Normal Red Blood Cell Morphology Normal Prothrombin Time 9.9 SEC (9.30-11.50) Prothromb Time International Ratio 0.9 (0.9-1.1) Activated Partial Thromboplast Time 26 SEC (23-33) Urine Color Yellow Urine Appearance Clear Urine pH 6.5 (4.5-8.0) Urine Specific [place]idan 1.020 (1.005-1.035) Urine Protein 2+ (NEGATIVE) H Urine Glucose (UA) Negative (NEGATIVE) Urine Ketones 4+ (NEGATIVE) H Urine Blood 5+ (NEGATIVE) H Urine Nitrite Negative (NEGATIVE) Urine Bilirubin Negative (NEGATIVE) Urine Urobilinogen Normal MG/DL (0.0-1.0) Urine Leukocyte Esterase 1+ (NEGATIVE) H Urine RBC Tntc /HPF (0 - 2) H Urine WBC 2-4 /HPF (0 - 2) Urine Squamous Epithelial Cells Many /LPF (NONE/OCC) H Urine Bacteria Few /HPF (NONE) Sodium Level 138 MMOL/L (136-145) Potassium Level 3.7 MMOL/L (3.5-5.1) Chloride Level 103 MMOL/L (98-107) Carbon Dioxide Level 25 MMOL/L (21-32) Anion Gap 10 mmol/L (5-15) Blood Urea Nitrogen 10 mg/dL (7-18) Creatinine 0.7 MG/DL (0.55-1.30) Estimat Glomerular Filtration Rate > 60 mL/min (>60) Glucose Level 136 MG/DL (74-106) H Calcium Level 8.6 MG/DL (8.5-10.1) Total Bilirubin 0.2 MG/DL (0.2-1.0) Aspartate Amino Transf (AST/SGOT) 46 U/L (15-37) H Alanine Aminotransferase (ALT/SGPT) 70 U/L (12-78) Alkaline Phosphatase 73 U/L (46-116) Total Protein 7.4 G/DL (6.4-8.2) Albumin 3.2 G/DL (3.4-5.0) L Globulin 4.2 g/dL Albumin/Globulin Ratio 0.8 (1.0-2.7) L Lipase 73 U/L (73-393) Human Chorionic Gonadotropin, Quant 98458 mIU/mL (1-6) H IMAGING: Findings: There is a single live intrauterine . This demonstrates breech presentation. It demonstrates positive heart activity, heart rate 136 bpm. There is a posterior placenta which clears the internal cervical os. The cervix is closed, endocervical canal measuring 3.9 cm in length. Normal amniotic fluid volume, amniotic fluid index 13.8 cm. measurements as follows: [place]-rump length 7.2 cm, 13 weeks 3 days; biparietal diameter 2.2 cm, 13 weeks 5 days; head circumference 8.1 cm, 30 weeks 3 days; abdominal circumference 7.7 cm, 14 weeks one day; femur length 1.3 cm, 30 weeks 5 days. Estimated gestational age by average of ultrasound measurements is 13 weeks 4 days. Estimated date of delivery 08/29/2019 Detailed assessment of anatomy not performed, due to early stage of , emergent nature of the exam. No gross anomalies demonstrated. Right ovary measures 2.8 cm in length. Left ovary cannot be demonstrated Impression: single live intrauterine . No unusual features Assessment/Plan 23yo at 14w1d by LMP 11/19/18 (DIETER 08/26/19), with prior history of 2nd trimester loss x 2, and recent UTI, admitted with syncopal episodes of unclear etiology. - Patient believes she was hungry, and attributes her syncope in the ER to lack of food - No evidence of pyelonephritis on exam, no fever or chills, no CVAT, however given her recent UTI it is reasonable to treat empirically (she has received 2 doses of CTX already, no need to continue in my opinion) - Advanced to regular diet - patient hungry and without nausea or emesis - She denies pain, has had no further episodes of syncope - Recommend walking with assistance to ensure no additional syncopal episodes, and if stable by this evening OK for discharge home - Confirm Doppler heart tones prior to discharge - Patient has appointment in the coming weeks for cerclage placement given her OB history - Recommend follow up with her primary FIRE ENGINEER this week Thank you for allowing me to participate in the care of this patient. Nela Brown M.D. Feb 26, 2019 09:28
[2019-02-26 12:00] VITALS: BP 121/68
--- NOTE | 2019-02-26 13:47 | Cardiology Report ---
APPROVED REPORT EKG Measurement Heart [id number] Normal sinus rhythm Normal ECG
--- NOTE | 2019-02-26 14:01 | Consultation ---
History of Present Illness General Date patient seen: Feb 26, 2019 Chief Complaint: Syncope Present Illness HPI 23 y/o F with hx of Obesity, at 14w1d is admitted on 02/25 with multiple episodes of syncope and hit he forehead. Patient was recently treated for UTI and last day of antibiotic was yesterday. Denied urinary symptoms, abd pain. Denied f/c, nausea, vomiting, cramping, vaginal bleeding, cough, SOB, rash. Allergies: Coded Allergies: No Known Allergies (Unverified , 07/09/15) Medication History Scheduled Aspirin* (Aspir 81*), 81 MG ORAL DAILY, (Reported) Miscellaneous Medications Vit/Iron Fumarate/Fa ( Vitamins Tablet), 1 EACH PO, (Reported) Discontinued Medications Diphenhydramine Hcl* (Benadryl*), 25 MG ORAL Q6H PRN for Itching Discontinued Reason: Therapy completed Nitrofurantoin Monohyd/M-Cryst* (Macrobid 100 Mg*), 100 MG ORAL EVERY 12 HOURS Discontinued Reason: Therapy completed No Known Medications* (NKM - No Known Medications*), 0 ., (Reported) Discontinued Reason: Therapy completed Prednisone* (Prednisone*), 10 MG ORAL DAILY Discontinued Reason: Therapy completed Prenat Vit Comb.10/Iron/Fa/Dha (Vitafol-Ob+Dha Combo Pack), 1 EACH PO, (Reported ) Discontinued Reason: Therapy completed Patient History Healthcare decision maker N Resuscitation status Full Code Advanced Directive on File Patient History Narrative Pmhx: as above Shx: Denies: smoking, alcohol use Fhx: non contributory Review of Systems All Other Systems: negative except mentioned in HPI Physical Exam Physical Exam Narrative Gen: NAD HEENT: OP Clear, MMM CV: No tachycardia Pulm: No increased work of breathing Abd: Soft, obese, NTND Back: No CVAT Ext: No calf TTP Last 24 Hour Vital Signs Date Time Temp Pulse Resp B/P (MAP) Pulse Ox O2 Delivery O2 Flow Rate FiO2 02/26/19 09:35 Room Air 02/26/19 08:00 98.4 89 20 116/72 (87) 94 02/26/19 04:00 98.6 92 18 128/68 (88) 99 02/26/19 04:00 94 02/26/19 00:00 98.4 84 18 123/67 (85) 98 02/26/19 00:00 91 02/25/19 22:09 Room Air 02/25/19 20:00 101 02/25/19 20:00 98.8 92 18 116/60 (78) 98 02/25/19 17:38 98.1 88 20 139/69 98 Room Air 02/25/19 13:59 98.1 102 19 130/69 98 Room Air Intake and Output 02/25/19 02/26/19 19:00 07:00 Intake Total 1000 ml 1140 ml Balance 1000 ml 1140 ml Intake Oral 240 ml IV Total 1000 ml 900 ml # Voids 1 2 Height (Feet): 5 Height (Inches): 3.00 Weight (Pounds): 206 Medications Current Medications Medications (Trade) Dose Ordered Sig/Ran Route PRN Reason Start Time Stop Time Status Last Admin Dose Admin Acetaminophen (Tylenol) 650 mg Q6H PRN ORAL Mild Pain/Temp > 100.5 02/25/19 20:15 03/27/19 20:14 Ceftriaxone Sodium 1 gm/ Dextrose 55 ml @ 110 mls/hr Q24H IVPB 02/26/19 09:00 03/05/19 08:59 02/26/19 08:43 Dextrose/ Electrolytes 1,000 ml @ 100 mls/hr Q10H IV 02/25/19 22:00 03/27/19 21:59 02/26/19 05:41 Non-Formulary Medication (Non-Formulary Med) 1 ea DAILY ORAL 02/26/19 09:00 03/28/19 08:59 UNV Ondansetron HCl (Zofran) 4 mg Q6H PRN IVP Nausea & Vomiting 02/25/19 20:15 03/27/19 20:14 Assessment/Plan Assessment/Plan: Abx: Ceftriaxone 02/25- Assessment: Syncopal episode Recent UTI, sp Treatment- no UTI symptoms and U/a neg; ucx not sent -u/a neg Afebrile Mild leukocytosis, likely reactive at 14w1d Obesity, at 14w1d i Plan: -On empiric Ceftriaxone #2 -ok to discharge off antibiotics -f/u cx -Monitor CBC/CMP, temperatures -Ucx Thank you for this consultation. Will continue to follow along with you. Discussed with Yoly Hutchinson M.D. Feb 26, 2019 14:01
--- NOTE | 2019-02-26 15:36 | History & Physical ---
History and Physical History & Physicial Celso Morales MD Feb 26, 2019 15:36
[2019-02-26 16:00] VITALS: BP 127/70
--- NOTE | 2019-02-26 22:00 | History and Physical Report ---
DATE OF ADMISSION: 02/25/2019 CHIEF COMPLAINT: Syncopal episode. HISTORY OF PRESENT ILLNESS: This is a 23-year-old morbidly obese female with 4, para 1, 23 at 14 weeks and 1 day , who has presented to the hospital after having multiple syncopal episodes. She struck her head. She was recently treated for UTI, last day antibiotic was yesterday. She denies any dysuria or frequency. Denies any abdominal pain. Denies any nausea or vomiting. Denies any vaginal bleeding. Shortly after initial evaluation in the emergency room, the patient was admitted to the hospital with syncopal episodes as well as possible recurrent urinary tract infection with syncope and collapse. PAST MEDICAL HISTORY/PAST SURGICAL HISTORY: As above. History of 14 weeks and one children at home. Denies any history of diabetes or high blood pressure. PAST SURGICAL HISTORY: Denies. MEDICATIONS AT HOME: Please refer to medication reconciliation. ALLERGIES: No known drug allergies. SOCIAL HISTORY: Denies any smoking, alcohol, or drugs. FAMILY HISTORY: Noncontributory. REVIEW OF SYSTEMS: Mostly as above. Denies any dysuria, frequency, or hematuria. Denies any hemoptysis or hematochezia. Denies any bright red blood per rectum. Denies any seizure activity. PHYSICAL EXAMINATION: VITAL SIGNS: On admission, temperature 98.1, pulse of 85, respirations 19, and blood pressure 116/71. GENERAL: The patient is awake and responsive, in no acute distress. HEAD AND NECK: Pupils are equal and reactive to light. Extraocular muscles intact. Neck was supple. No JVD. LUNGS: Good air entry with no wheeze or rales. HEART: S1, S2. Regular rhythm. No gallops. ABDOMEN: Soft, nondistended, and nontender. Morbidly obese. EXTREMITIES: No cyanosis, clubbing, or edema NEUROLOGIC: Cranial nerves II through XII grossly intact. Motor is 5/5 in all extremities. Gait is intact. RECTAL/GENITOURINARY: Refused and deferred. PSYCHIATRIC: Mood and affect is intact. LABORATORY DATA: On admission from the ER, WBC of 12, hemoglobin 13, hematocrit 39, and platelets 216,000. Sodium 138, potassium 3.7, chloride 103, bicarb 25, BUN 10, and creatinine 0.7. Glucose is 136. AST of 46, ALT of 70. Lipase is 73. Beta-HCG is 65,905. PT of 9.9, INR 0.9, and PTT of 26. Urinalysis +2 protein, +4 ketones, +5 blood, tainted rbc's, +1 leukocytes, many squamous, and few bacteria. ASSESSMENT: 1. Syncope, most likely secondary to the hypovolemia and volume depletion. 2. Gestational with 14 weeks. 3. Morbid obesity. PLAN: 1. Admit the patient to monitored unit. 2. We will follow up with DOOR CUTTER consultation as well as Infectious Disease. 3. IV hydration. 4. Monitor laboratory. 5. If the patient's status improves, consider discharge home to follow up with her regular OB as outpatient. 6. Code status, Full Code. 7. DVT prophylaxis is SCD. Celso Morales M.D. DR: MISTY JOB#: [id number] CC:
--- NOTE | 2019-02-28 08:54 | Discharge Summary ---
Discharge Summary Discharge Summary _ DATE OF ADMISSION: 02/25/2019 DATE OF DISCHARGE: 02/26/2019 DISCHARGED BY: Dr. Celso Morales CONSULTANTS: Dr. Nela Roque BRIEF HOSPITAL COURSE: Patient is a 23-year-old morbidly obese female, 4, para 1, who presented to ED due to a syncopal episode at home. Patient hit her forehead. She has right lower quadrant and right flank pain. She is being treated for UTI. She had chills but no documented fever. No vomiting, no blood. She has not taking any medications for pain. Pain radiated to the right flank. She denies any vaginal bleeding or discharge. Patient is 14 weeks . She denies sore throat, chest pain, palpitations, diarrhea, cough, shortness of breath, joint pain or rashes. Upon evaluation at the ED vital signs were stable. Examination was nonfocal. Blood work showed WBC elevated to 12.8. Hemoglobin and hematocrit were stable. Electrolytes were normal. Lipase normal. Urinalysis revealed +1 leukocyte esterase, too many to count urine RBC, 2-4 urine WBC. hCG was > 65,000. Patient had pallor improved when supine. She continued to vomit. She was treated with Reglan, Benadryl and morphine. Pelvic ultrasound showed intrauterine 13 weeks, 4-day. She was then admitted for syncope, likely secondary to hypovolemia and volume depletion. She was admitted to monitored unit. She was given IV hydration. Real Estate Rental Agent and ID specialist were consulted. Syncope was attributed to lack of food. There was no evidence of pyelonephritis on examination. She denies pain and had no further episodes of syncope. heart tones confirmed. Patient has appointment with SUPERVISOR FIBER LOCKING for cerclage placement. She was given 2 doses of ceftriaxone for empiric treatment of UTI. She was advised to follow-up and continue with care. FINAL DIAGNOSES: Syncope most likely secondary to hypovolemia and volume depletion Gestational with 14 weeks Morbid obesity DISPOSITION: Patient was discharged home. DISCHARGE MEDICATIONS: Refer to Discharge Medication List. DISCHARGE INSTRUCTIONS: Follow-up with PCP and OB in a week. I have been assigned to complete a discharge summary on this account, I was not involved with the patient's management.--DANIEL Sanders Jacqueline Robles NP Feb 28, 2019 08:53
== END 2019-02-26 18:30 | disposition home or self-care (01) | DRG 566 ==
LOC: EMR 11:40 → 2E 15:40 → OBSVTOIN 15:40 → EDBEDREQ 16:19 → 2E 02-26 04:18
DX: O26.892 Other specified pregnancy related conditions, second trimester (principal); R55 Syncope and collapse; E86.1 Hypovolemia; E66.01 Morbid (severe) obesity due to excess calories; Z68.35 Body mass index [BMI] 35.0-35.9, adult; Z3A.14 14 weeks gestation of pregnancy
CPT/HCPCS: 36415; 76801; 76830; 80053; 81003; 83690; 84702; 85007; 85025; 85610; 85730; 86850; 86900; 86901; 93005; 96361; 96365; 96375; 99284; J2765; J7030